=== PATIENT | male | born 1995 | race African-American/Black ===

== ENCOUNTER 2018-04-09 03:19 | Emergency (ER) | payer OTHER ==
[2018-04-09] MEDS ORDERED: HALOPERIDOL LACT 5 MG/ML INJ IVP ONE (03:40)
[2018-04-09] MEDS ORDERED: DEXAMETHASONE 10 MG/ML VIAL IVP ONE (03:40)
[2018-04-09] MEDS ORDERED: NS 1,000 ML IV ONE (03:43)
[2018-04-09 03:46] LABS: PLATELET COUNT 242 10^3/uL (150-400)
--- NOTE | 2018-04-09 03:47 | EDPHY ---
H & P Stated Complaint: ATKINSON/dizziness since 1am Time Seen by Provider: 04/09/18 03:32 HPI/ROS: Chief Complaint: Headache HPI: 22-year-old male with no past medical history presenting with 8/10 bifrontal headache which began about 3-4 hours ago. It was gradual in onset. Is up to an 8/10. Some nausea but no vomiting. No fevers or chills. No neck stiffness. He states that the bright light and noise bothers his eyes. Does not have a history of headaches. No family history of headaches. No trauma or injuries. ROS: 10 point Review of Systems is negative except as noted in the HPI. PMH: Denies Social History: No smoking, no alcohol, no recreational drug use Family History: non-contributory Physical Exam: Gen: Awake, Alert, No Distress HEENT: Nose: no rhinorrhea Eyes: PERRLA, EOMI Mouth: Moist mucosa Neck: Supple, no JVD, no meningismus Chest: nontender, lungs clear to auscultation Heart: S1, S2 normal, no murmur Abd: Soft, non-tender, no guarding Back: no CVA tenderness, no midline tenderness Ext: no edema, non-tender Skin: no rash Neuro: CN II-XII intact, Sensation grossly intact, Strength 5/5 in bilateral upper and lower extremities - Personal History Current Tetanus/Diphtheria Vaccine: Unsure - Medical/Surgical History Hx Asthma: No Hx Chronic Respiratory Disease: No Hx Diabetes: No Hx Cardiac Disease: No Hx Renal Disease: No Hx Cirrhosis: No Hx Alcoholism: No Hx HIV/AIDS: No Hx Splenectomy or Spleen Trauma: No Other PMH: denies - Social History Smoking Status: Never smoked Constitutional: Initial Vital Signs Temperature (C) 36.3 C 04/09/18 03:21 Heart Rate 63 04/09/18 03:21 Respiratory Rate 18 04/09/18 03:21 Blood Pressure 143/100 H 04/09/18 03:21 O2 Sat (%) 99 04/09/18 03:21 O2 Delivery Mode Room Air Allergies/Adverse Reactions: amoxicillin Allergy (Verified 04/09/18 03:25) Home Medications: Medication Instructions Recorded NK [No Known Home Meds] 04/09/18 Medical Decision Making - Diagnostics Imaging Results: CT scan of the head is negative per Dr. Dominguez. ED Course/Re-evaluation: Patient's headache is resolved after IV Toradol, Benadryl, Haldol, and Decadron. CT scan of the head is negative. This CT scan was obtained with in 6 hr of the onset of the headache. Nares no evidence of subarachnoid hemorrhage at this time. He has no meningismus. No fever. Neurologic exam is otherwise unremarkable. He is currently symptom free. No evidence of acute intracranial bleed or infection. Will discharge with follow-up with primary care physician, return for any concerns. - Data Points Laboratory Results: Laboratory Results 04/09/18 03:40 04/09/18 03:40 04/09/18 04/09/18 03:40 03:40 WBC 7.22 10^3/uL 10^3/uL (3.80-9.50) RBC 5.28 10^6/uL 10^6/uL (4.40-6.38) Hgb 15.6 g/dL g/dL (13.7-17.5) Hct 45.7 % % (40.0-51.0) MCV 86.6 fL fL (81.5-99.8) MCH 29.5 pg pg (27.9-34.1) MCHC 34.1 g/dL g/dL (32.4-36.7) RDW 12.5 % % (11.5-15.2) Plt Count 242 10^3/uL 10^3/uL (150-400) MPV 10.2 fL fL (8.7-11.7) Neut % (Auto) 49.0 % % (39.3-74.2) Lymph % (Auto) 35.3 % % (15.0-45.0) [place] % (Auto) 7.8 % % (4.5-13.0) Eos % (Auto) 6.9 % % (0.6-7.6) Baso % (Auto) 0.7 % % (0.3-1.7) Nucleat RBC Rel Count 0.0 % % (0.0-0.2) Absolute Neuts (auto) 3.54 10^3/uL 10^3/uL (1.70-6.50) Absolute Lymphs (auto) 2.55 10^3/uL 10^3/uL (1.00-3.00) Absolute Monos (auto) 0.56 10^3/uL 10^3/uL (0.30-0.80) Absolute Eos (auto) 0.50 10^3/uL H 10^3/uL (0.03-0.40) Absolute Basos (auto) 0.05 10^3/uL 10^3/uL (0.02-0.10) Absolute Nucleated RBC 0.00 10^3/uL 10^3/uL (0-0.01) Immature Gran % 0.3 % % (0.0-1.1) Immature Gran # 0.02 10^3/uL 10^3/uL (0.00-0.10) Sodium 143 mEq/L mEq/L (135-145) Potassium 4.4 mEq/L mEq/L (3.3-5.0) Chloride 107 mEq/L mEq/L (97-110) Carbon Dioxide 22 mEq/l mEq/l (22-31) Anion Gap 14 mEq/L mEq/L (8-16) BUN 14 mg/dL mg/dL (7-23) Creatinine 1.0 mg/dL mg/dL (0.7-1.3) Estimated GFR > 60 Glucose 81 mg/dL mg/dL (70-100) Calcium 9.3 mg/dL mg/dL (8.5-10.4) Medications Given: Discontinued Medications Dexamethasone (Decadron Injection) 10 mg IVP EDNOW ONE Stop: 04/09/18 03:41 Last Admin: 04/09/18 03:55 Dose: 10 mg Diphenhydramine HCl (Benadryl Injection) 50 mg IVP EDNOW ONE Stop: 04/09/18 03:41 Last Admin: 04/09/18 03:52 Dose: 50 mg Haloperidol Lactate (Haldol Injection) 2.5 mg IVP EDNOW ONE Stop: 04/09/18 03:41 Last Admin: 04/09/18 03:53 Dose: 2.5 mg Sodium Chloride (Ns) 1,000 mls @ 0 mls/hr IV ONCE ONE PRN Reason: Wide Open Stop: 04/09/18 03:44 Last Admin: 04/09/18 03:51 Dose: 1,000 mls Ketorolac Tromethamine (Toradol) 15 mg IVP EDNOW ONE Stop: 04/09/18 04:07 Last Admin: 04/09/18 04:12 Dose: 15 mg Departure - Departure Disposition: Home, Routine, Self-Care Clinical Impression: Headache Condition: Good Instructions: Acute Headache (ED) Additional Instructions: Follow up with your primary care physician in 2-3 days for re-evaluation. Return to the emergency department for increasing headache, fevers or chills, nausea, vomiting, numbness, weakness, or any other concerns. Referrals: NONE *PRIMARY CARE P,. [Primary Care Provider] - As per Instructions
[2018-04-09] MEDS ORDERED: KETOROLAC 15 MG/1 ML SDV IVP ONE (04:06)
[2018-04-09 04:44] VITALS: BP 147/79
== END 2018-04-09 04:43 | disposition home or self-care (01) ==
DX: R51 Headache (principal)
CPT/HCPCS: 96374; J1100; J1200; J1630; J1885